=== PATIENT | female | born 1945 | race Caucasian/White ===

== ENCOUNTER 2018-10-29 20:58 | Emergency (ER) | payer MEDICARE, MEDICAID ==
[~2018-10-29] VITALS: Ht 149.9 cm; Wt 68.0 kg
[2018-10-29] MEDS ORDERED: normal saline 1000ML IV soln IV ONE (22:45)
[2018-10-29] MEDS ORDERED: piperacillin/tazo 3.375gm/50ml 50 ML IV ONE (22:45)
[2018-10-29] MEDS ORDERED: CefTRIAXone 2gm/D5W 50ml 50 ML IV ONE (22:45)
[2018-10-29] MEDS ORDERED: acetaminophen 325mg tablet PO ONE (22:45)
[2018-10-29] MEDS ORDERED: azithromycin/NS 500mg/250ml 250 ML IV ONE (22:55)
[2018-10-29 23:19] LABS: ALANINE AMINOTRANSFERASE 41 U/L (12-78); ALBUMIN 3.8 G/DL (3.4-5.0); ALBUMIN/GLOBULIN RATIO 1.1 (1.1-1.5); ALKALINE PHOSPHATASE 84 IU/L (46-116); ANION GAP 11 (8-16); ASPARTATE AMINO TRANSFERASE 20 U/L (10-37); BILIRUBIN,TOTAL 1.2 MG/DL (0.1-1.0); BLOOD UREA NITROGEN 21 MG/DL (7-18); BUN/CREATININE RATIO 28.8 (6.6-38.0); CALCIUM 9.7 MG/DL (8.5-10.1); CHLORIDE 102 MMOL/L (99-107); CREATININE 0.73 MG/DL (0.40-0.90); GLUCOSE 122 MG/DL (70-104); POTASSIUM 3.9 MMOL/L (3.5-5.1); SODIUM 138 MMOL/L (135-145); TOTAL PROTEIN 7.3 G/DL (6.4-8.2); eGFR 79 ML/MIN
[2018-10-29 23:22] LABS: MAGNESIUM 1.9 MG/DL (1.5-2.4); TROPONIN I < 0.04 NG/ML (0.0-0.05)
[2018-10-29 23:23] LABS: BASOPHILS % (AUTO) 0.5 % (0-1); EOSINOPHILS # (AUTO) 0.2 X10'3 (0-0.9); EOSINOPHILS % (AUTO) 1.6 % (0-6); HEMATOCRIT 43.2 % (35.0-45.0); HEMOGLOBIN 14.7 g/dl (12.0-16.0); LYMPHOCYTES # (AUTO) 2.7 X10'3 (1.1-4.8); LYMPHOCYTES % (AUTO) 27.8 % (21-51); MEAN CORPUSCULAR HEMOGLOBIN 31.3 PG (27.0-31.0); MEAN CORPUSCULAR VOLUME 92.1 FL (78-98); MEAN PLATELET VOLUME 9.3 FL (7.4-10.4); MONOCYTES # (AUTO) 0.9 X10'3 (0-0.9); MONOCYTES % (AUTO) 9.4 % (2-12); NEUTROPHILS # (AUTO) 5.9 X10'3 (1.8-7.7); NEUTROPHILS % (AUTO) 60.7 % (42-75); PLATELET COUNT 195 X10'3 (140-440); RED BLOOD COUNT 4.69 X10'6 (4.20-5.60); RED CELL DISTRIBUTION WIDTH 12.5 % (11.5-14.5); WHITE BLOOD COUNT 9.7 X10'3 (4.5-11.0)
[2018-10-29 23:25] LABS: INR 1.1 INR; PARTIAL THROMBOPLASTIN TIME 26 SECONDS (22-32); PROTHROMBIN TIME 11.4 SECONDS (9.0-12.0)
[2018-10-30] LABS: CLARITY,URINE CLEAR (Clear); COLOR,URINE YELLOW (Yellow); GLUCOSE, URINE NEGATIVE (Neg); KETONES,URINE TRACE mg/dl (Neg); LEUKOCYTE ESTERASE ,URINE NEGATIVE (Neg); NITRITES, URINE NEGATIVE (Neg); OCCULT BLOOD,URINE NEGATIVE (Neg); PROTEIN,URINE NEGATIVE (Neg); UROBILINOGEN,URINE 0.2 E.U/dL (0.2-1.0)
[2018-10-30 00:08] LABS: UA COLLECTION TYPE STRAIGHT CATH
[2018-10-30] MEDS ORDERED: normal saline 1000ML IV soln IVB ONE (00:45)
[2018-10-30] MEDS ORDERED: normal saline 1000ml 1,000 ML IV ONE (00:50)
[2018-10-30 03:06] VITALS: BP 111/53
== END 2018-10-30 03:08 | disposition home or self-care (01) ==
LOC: ER 20:59
DX: R50.9 Fever, unspecified (principal); R51 Headache; M25.511 Pain in right shoulder; M25.512 Pain in left shoulder
CPT/HCPCS: 36415; 71045; 80053; 81003; 82948; 83605; 83735; 84145; 84484; 85025; 85610; 85730; 87040; 87502; 87503; 93005; 96365; 96366; 96368; 99284; J0456; J0696; J7030; P9612

== ENCOUNTER 2024-12-22 13:31 | Emergency (ER) | payer MEDICARE, MEDICAID ==
[~2024-12-22] VITALS: Ht 149.9 cm; Wt 58.2 kg
[2024-12-22 13:41] VITALS: TEMP 98.8
[2024-12-22] MEDS: acetaminophen 325mg tablet PO ONE (15:37)
[2024-12-22] MEDS ORDERED: ACET-3174 PO (15:55)
[2024-12-22] MEDS ORDERED: IBUP-1985 PO (15:55)
[2024-12-22 16:05] VITALS: BP 141/82; PULSE 86; RESP 15; O2SAT 96
== END 2024-12-22 16:08 | disposition home or self-care (01) ==
LOC: ER 13:31
DX: R07.81 Pleurodynia (principal); W18.30XA Fall on same level, unspecified, initial encounter; Y93.89 Activity, other specified; Y92.89 Other specified places as the place of occurrence of the external cause; Y99.8 Other external cause status
CPT/HCPCS: 71111; 99284; A4615